=== PATIENT | male | born 1955 | race Caucasian/White ===

== ENCOUNTER → 2023-10-14 | Outpatient (CLI) | payer MEDICARE | END | disposition home or self-care (01) | LOC: RESCLI 08:52 | PROVIDERS: ATTEND Family Medicine | DX: Z13.1 Encounter for screening for diabetes mellitus (principal); I48.91 Unspecified atrial fibrillation; E78.5 Hyperlipidemia, unspecified; E03.9 Hypothyroidism, unspecified; Z98.890 Other specified postprocedural states; Z79.84 Long term (current) use of oral hypoglycemic drugs; Z79.899 Other long term (current) drug therapy; Z79.01 Long term (current) use of anticoagulants ==